=== PATIENT | female | born 1980 | race Caucasian/White ===

== ENCOUNTER → 2024-08-21 15:33 | Outpatient (REF) | payer BC, SELFPAY | LOC: PNTC 15:33 | PROVIDERS: ATTENDING PHYSICIAN Advanced Practice Midwife | DX: O36.80X0 Pregnancy with inconclusive fetal viability, not applicable or unspecified (principal) | CPT/HCPCS: 76801 ==

== ENCOUNTER → 2024-09-18 11:46 | Outpatient (REF) | payer BC, SELFPAY | LOC: PNTC 11:46 | PROVIDERS: ATTENDING PHYSICIAN Obstetrics & Gynecology | DX: Q03.0 Malformations of aqueduct of Sylvius (principal) | CPT/HCPCS: 76816; 76817 ==

== ENCOUNTER → 2024-10-22 07:53 | Outpatient (REF) | payer BC, SELFPAY | LOC: PNTC 07:53 | PROVIDERS: ATTENDING PHYSICIAN Advanced Practice Midwife | DX: Q18.9 Congenital malformation of face and neck, unspecified (principal); O35.8XX0 Maternal care for other (suspected) fetal abnormality and damage, not applicable or unspecified; O35.13X0 Maternal care for (suspected) chromosomal abnormality in fetus, Trisomy 21, not applicable or unspecified; O09.522 Supervision of elderly multigravida, second trimester | CPT/HCPCS: 76805 ==

== ENCOUNTER → 2025-02-05 13:54 | Outpatient (REF) | payer BC, SELFPAY | LOC: PNTC 13:54 | PROVIDERS: ATTENDING PHYSICIAN Advanced Practice Midwife | DX: O28.5 Abnormal chromosomal and genetic finding on antenatal screening of mother (principal); O09.523 Supervision of elderly multigravida, third trimester; O99.213 Obesity complicating pregnancy, third trimester | CPT/HCPCS: 59025; 76815 ==

== ENCOUNTER 2025-02-12 13:48 | Observation (INO) | payer BC, SELFPAY ==
[2025-02-12 14:28] LABS: Hematocrit 30.6 % (37.0-47.0); Hemoglobin 10.4 g/dL (12.0-16.0); Mean Corp Hgb Conc. 34.0 g/dL (33.0-37.0); Mean Corpuscular Volume 82.9 fL (81.0-99.0); Platelet Count 260 10^3/uL (130-400); Red Cell Dist. Width 13.4 % (11.5-14.5)
[2025-02-12 14:29] LABS: Urine Character Clear (Clear)
[2025-02-12 14:35] VITALS: BP 143/63; BMI 34.5
[2025-02-12 14:42] LABS: Urine Red Blood Cell None Seen /HPF (0-2); Urine Squamous Cell >30 /LPF (Few)
[2025-02-12 14:43] LABS: ALT (SGPT) 13 U/L (0-35); AST (SGOT) 16 U/L (14-36); Albumin 3.3 g/dl (3.5-5.0); Alkaline Phosphatase 100 U/L (38-126); Blood Urea Nitrogen 5 mg/dl (7-17); Calcium 8.7 mg/dl (8.4-10.2); Carbon Dioxide 22 mmol/L (22-30); Chloride 107 mmol/L (98-107); Glucose 77 mg/dl (70-99); Potassium 3.9 mmol/L (3.5-5.1); Sodium 132 mmol/L (135-145); Total Protein 6.3 g/dl (6.3-8.2); eGFR > 60.00
== END 2025-02-12 15:50 | disposition home or self-care (01) ==
LOC: PNTC-IN 13:48
PROVIDERS: ADMITTING PHYSICIAN Obstetrics & Gynecology; ATTENDING PHYSICIAN Advanced Practice Midwife
DX: O11.3 Pre-existing hypertension with pre-eclampsia, third trimester (principal); O99.213 Obesity complicating pregnancy, third trimester; O09.523 Supervision of elderly multigravida, third trimester; O28.5 Abnormal chromosomal and genetic finding on antenatal screening of mother; O32.1XX0 Maternal care for breech presentation, not applicable or unspecified; Z3A.33 33 weeks gestation of pregnancy; O10.913 Unspecified pre-existing hypertension complicating pregnancy, third trimester; Z88.0 Allergy status to penicillin
CPT/HCPCS: 59025; 76816; 76818; 80053; 81003; 81015; 82570; 84156; 85027; G0378

== ENCOUNTER 2025-02-15 12:17 | Observation (INO) | payer BC, SELFPAY ==
[2025-02-15 12:28] VITALS: BP 143/73; BMI 33.7
== END 2025-02-15 13:56 | disposition home or self-care (01) ==
LOC: LDRP 12:17
PROVIDERS: ADMITTING PHYSICIAN Advanced Practice Midwife; FAMILY PHYSICIAN Hospitalist
DX: O11.3 Pre-existing hypertension with pre-eclampsia, third trimester (principal); O10.913 Unspecified pre-existing hypertension complicating pregnancy, third trimester; O09.523 Supervision of elderly multigravida, third trimester; Z3A.34 34 weeks gestation of pregnancy; O99.013 Anemia complicating pregnancy, third trimester; D64.9 Anemia, unspecified; O99.343 Other mental disorders complicating pregnancy, third trimester; F41.9 Anxiety disorder, unspecified; Z88.0 Allergy status to penicillin; Z86.14 Personal history of Methicillin resistant Staphylococcus aureus infection
CPT/HCPCS: 59025; G0378

== ENCOUNTER → 2025-02-19 13:43 | Outpatient (REF) | payer BC, SELFPAY | LOC: PNTC 13:43 | PROVIDERS: ATTENDING PHYSICIAN Advanced Practice Midwife | DX: O28.5 Abnormal chromosomal and genetic finding on antenatal screening of mother (principal); O09.523 Supervision of elderly multigravida, third trimester; O99.213 Obesity complicating pregnancy, third trimester | CPT/HCPCS: 59025; 76818 ==

== ENCOUNTER → 2025-02-26 14:52 | Outpatient (REF) | payer BC, SELFPAY | LOC: PNTC 14:52 | PROVIDERS: ATTENDING PHYSICIAN Advanced Practice Midwife | DX: O28.5 Abnormal chromosomal and genetic finding on antenatal screening of mother (principal); O09.523 Supervision of elderly multigravida, third trimester; O99.213 Obesity complicating pregnancy, third trimester; O36.8390 Maternal care for abnormalities of the fetal heart rate or rhythm, unspecified trimester, not applicable or unspecified | CPT/HCPCS: 59025; 76818 ==

== ENCOUNTER → 2025-03-05 14:53 | Outpatient (REF) | payer BC, SELFPAY | LOC: PNTC 14:53 | PROVIDERS: ATTENDING PHYSICIAN Advanced Practice Midwife | DX: O28.5 Abnormal chromosomal and genetic finding on antenatal screening of mother (principal); O09.523 Supervision of elderly multigravida, third trimester; O99.213 Obesity complicating pregnancy, third trimester | CPT/HCPCS: 59025; 76815 ==

== ENCOUNTER 2025-03-10 18:37 | Inpatient (IN) | payer BC, SELFPAY ==
[2025-03-10 18:48] VITALS: BP 135/61; BMI 33.7
[2025-03-10 19:30] LABS: Hematocrit 29.9 % (37.0-47.0); Hemoglobin 10.3 g/dL (12.0-16.0); Mean Corp Hgb Conc. 34.4 g/dL (33.0-37.0); Mean Corpuscular Volume 82.6 fL (81.0-99.0); Nucleated Red Blood Cells % 0 %; Platelet Count 271 10^3/uL (130-400); Red Cell Dist. Width 14.1 % (11.5-14.5)
[2025-03-10 19:47] LABS: ALT (SGPT) 13 U/L (0-35); AST (SGOT) 15 U/L (14-36); Albumin 3.2 g/dl (3.5-5.0); Alkaline Phosphatase 135 U/L (38-126); Blood Urea Nitrogen 9 mg/dl (7-17); Calcium 9.3 mg/dl (8.4-10.2); Carbon Dioxide 22 mmol/L (22-30); Chloride 109 mmol/L (98-107); Estimated Creatinine Clearance 124 ml/min; Glucose 95 mg/dl (70-99); Potassium 3.7 mmol/L (3.5-5.1); Sodium 134 mmol/L (135-145); Total Protein 6.2 g/dl (6.3-8.2); Uric Acid 5.1 mg/dl (2.5-6.2); eGFR > 60.00
[2025-03-11] MEDS: LR 1000 IV ×2 (08:10→13:50)
[2025-03-11] MEDS: PROCARDIA XL (EXTENDED RELEASE) 30 MG PO (08:11)
[2025-03-11] MEDS: PITOCIN 30 UNITS/NSS 500 ML IV ×2 (08:12→20:00)
[2025-03-11] MEDS: SUBLIMAZE 100 MCG EPIDURAL (13:24)
[2025-03-11] MEDS: FENTANYL/BUPIVACAINE 100 EPIDURAL (13:28)
[2025-03-11] MEDS: XYLOCAINE-MPF 1% VIAL 30 ML INFIL (20:00)
[2025-03-11] MEDS: MOTRIN 600 MG PO (22:24)
[2025-03-12] MEDS: TYLENOL 650 MG PO (04:42)
[2025-03-12] MEDS: MOTRIN 600 MG PO (04:42)
[2025-03-12 05:18] LABS: Hematocrit 33.5 % (37.0-47.0); Hemoglobin 11.4 g/dL (12.0-16.0)
[2025-03-12] MEDS: PROCARDIA XL (EXTENDED RELEASE) 60 MG PO (08:27)
[2025-03-12] MEDS: FEOSOL 325 MG PO (08:27)
[2025-03-12] MEDS: COLACE 100 MG PO (08:27)
[2025-03-12 13:39] LABS: Syphilis/T. pallidum Ab Reflex Negative (Negative)
[2025-03-13] MEDS: COLACE PO (06:24)
[2025-03-13] MEDS: FEOSOL 325 MG PO (08:30)
[2025-03-13] MEDS: PROCARDIA XL (EXTENDED RELEASE) 60 MG PO (08:30)
[2025-03-13] MEDS: COLACE 100 MG PO (08:31)
== END 2025-03-13 13:06 | disposition home or self-care (01) | DRG 807 ==
LOC: LDRP 18:37
PROVIDERS: ADMITTING PHYSICIAN Advanced Practice Midwife
PROC: 0U7C7DJ Dilation of Cervix with Intraluminal Device, Temporary, Via Natural or Artificial Opening (ICD-10-PCS; 2025-03-10)
PROC: 3E033VJ Introduction of Other Hormone into Peripheral Vein, Percutaneous Approach (ICD-10-PCS; 2025-03-10)
PROC: 10907ZC Drainage of Amniotic Fluid, Therapeutic from Products of Conception, Via Natural or Artificial Opening (ICD-10-PCS; 2025-03-11)
PROC: 10E0XZZ Delivery of Products of Conception, External Approach (ICD-10-PCS; 2025-03-11)
DX: O11.4 Pre-existing hypertension with pre-eclampsia, complicating childbirth (principal); Z37.0 Single live birth; Z3A.37 37 weeks gestation of pregnancy; O69.3XX0 Labor and delivery complicated by short cord, not applicable or unspecified; O35.13X0 Maternal care for (suspected) chromosomal abnormality in fetus, Trisomy 21, not applicable or unspecified
CPT/HCPCS: 36415; 80053; 84550; 85014; 85018; 85025; 86780; 86850; 86900; 86901; 88307